=== PATIENT | female | born 1965 | race Caucasian/White ===

== ENCOUNTER 2019-03-25 17:14 | Inpatient (IN) | payer BC, OTHER ==
[2019-03-25] MEDS ORDERED: SODIUM CHLORIDE 1,000 ML IV STA (17:21)
[2019-03-25] MEDS ORDERED: ONDANSETRON 4 MG/2 ML VIAL IVPUSH ONE (17:23)
--- NOTE | 2019-03-25 17:24 | PDOC ---
Rapid Medical Evaluation Chief Complaint: Pain Time Seen by Provider: 03/25/19 17:20 Medical Evaluation: Allergies Allergy/AdvReac Type Severity Reaction Status Date / Time No Known Allergies Allergy Verified 03/25/19 17:20 03/25/19 17:24 I have performed a brief in-person evaluation of this patient. The patient presents with a chief complaint of: right upper abd pain Pertinent physical exam findings:stable and in NAD, non-focal I have ordered the following:labs, zofran The patient will proceed to the ED for further evaluation.
[2019-03-25] MEDS ORDERED: morphine CARPU-JECT 4 MG/1 ML DISP.SYRIN IVPUSH ONE (17:48)
--- NOTE | 2019-03-25 17:48 | PDOC ---
History of Present Illness - General Chief Complaint: Pain Stated Complaint: ABD PAIN Time Seen by Provider: 03/25/19 17:20 - History of Present Illness Initial Comments: 03/25/19 18:44 The patient is a 53 year old female with a history of Gallstone, Gastric Bypass who presents for evaluation of RUQ abdominal pain. The patient reports acute onset of RUQ abdominal pain earlier today that initially began as a dull ache and has progressed to 8/10 crampy pain with radiation to her back prompting her presentation to the ED for further evaluation. She notes that she has had similar pain intermittently over the past several years and has known gallstones. She otherwise denies fevers, chills, SOB, chest pain, vomiting, or changes with urination or bowel movements. Past History - Past Medical History Allergies/Adverse Reactions: Allergies Allergy/AdvReac Type Severity Reaction Status Date / Time fexofenadine [From Susie] Allergy Verified 03/25/19 17:48 Home Medications: Ambulatory Orders Albuterol Sulfate Inhaler - [Ventolin Hfa Inhaler -] 1 - 2 inh PO Q4H PRN Cholecalciferol (Vitamin D3) [Vitamin D3 -] 1,000 unit PO DAILY 03/25/19 COPD: No CHF: No DVT: No Diabetes: No Other medical history: GALLSTONES - Immunization History Immunization Up to Date: Yes - Suicide/Smoking/Psychosocial Hx Smoking History: Never smoked Have you smoked in the past 12 months: No Information on smoking cessation initiated: No Hx Alcohol Use: No Drug/Substance Use Hx: No Review of Systems - Review of Systems Comments:: 03/25/19 19:24 Constitutional: No fevers, chills, fatigue, malaise HEENT: No Rhinorrhea, nasal congestion, visual changes Cardiovascular: No chest pain, syncope, palpitations, lightheadedness Respiratory: No Cough, SOB, Hemoptysis, Gastrointestinal: Abdominal pain, nausea. No Vomiting, Constipation, Diarrhea, Melena Genitourinary: No Dysuria, Frequency, Urgency, Hesitancy, Hematuria, Flank pain Musculoskeletal: No Myalgia, arthralgia Skin: No rashes, itching, bruising, pallor Neurologic: No Headache, Dizziness, Numbness, Weakness, or Tingling Psychiatric: No Hallucinations. No SI or HI *Physical Exam - Vital Signs Last Vital Signs Temp Pulse Resp BP Pulse Ox 97.9 F 83 16 225/120 H 100 03/25/19 17:21 03/25/19 17:21 03/25/19 17:21 03/25/19 17:21 03/25/19 17:21 - Physical Exam Comments: 03/25/19 19:24 General Appearance: Nourished. No Apparent Distress HEENT: No Pharyngeal Erythema, Tonsillar Exudate, Tonsillar Erythema Neck: No Cervical Lymphadenopathy Respiratory/Chest: Lungs Clear, Normal Breath Sounds. No Crackles, Rales, Rhonchi, Wheezing Cardiovascular: Regular Rhythm, Regular Rate. No Murmur, Gallops, Rubs Gastrointestinal/Abdominal: Normal Bowel Sounds, Soft. RUQ Tenderness to palpation with Ennis's sign. No Guarding, Rebound, Musculoskeletal: No CVA Tenderness Extremity: Normal Capillary Refill Integumentary: Normal Color, Dry, Warm Neurologic: Fully Oriented, Alert, Normal Mood/Affect, Normal Response, ED Treatment Course - LABORATORY CBC & Chemistry Diagram: 03/26/19 05:25 03/26/19 05:25 Medical Decision Making - Medical Decision Making 03/25/19 19:25 The patient is a 53 year old female with a history of Gallstone, Gastric Bypass who presents for evaluation of RUQ abdominal pain. Given the patient's history and physical exam, we will obtain a cbc, cmp, lipase, ua, ekg, gallbladder US to evaluate further. We will treat with zofran, morphine, iv fluids and continue to monitor and reassess while here in the ED. 03/25/19 21:15 cbc, cmp, lipase are unremarkable. Gallbladder US demonstrates findings concerning for a possible acute cholecysitis as read by our radiologist. We discussed the case with Dr. Jc with surgery who is aware and will evaluate the patient. The patient will require admission for further monitoring and management. We discussed the case with the admitting team who accepted the patient for admission. *DC/Admit/Observation/Transfer Diagnosis at time of Disposition: Abdominal pain Qualifiers: Abdominal location: unspecified location Qualified Code(s): R10.9 - Unspecified abdominal pain Cholecystitis with cholelithiasis Qualifiers: Cholelithiasis location: gallbladder and bile duct Cholecystitis acuity: unspecified acuity Biliary obstruction: without biliary obstruction Qualified Code(s): K80.60 - Calculus of gallbladder and bile duct with cholecystitis, unspecified, without obstruction - Referrals - Patient Instructions - Post Discharge Activity
[2019-03-25] MEDS ORDERED: ONDANSETRON 4 MG/2 ML VIAL ONE (17:49)
[2019-03-25] MEDS ORDERED: morphine SULFATE 4 MG/ML VIAL ONE (17:55)
--- NOTE | 2019-03-25 18:50 | PDOC ---
Documentation entered by Meg Alexandre SCRIBE, acting as scribe for Edie Haynes MD. Edie Haynes MD: This documentation has been prepared by the deannibe, Meg Alexandre SCRIBE, under my direction and personally reviewed by me in its entirety. I confirm that the documentation accurately reflects all work, treatment, procedures, and medical decision making performed by me. Attending Attestation - Resident Resident Name: Jay Smith - ED Attending Attestation I have performed the following: I have examined & evaluated the patient, The case was reviewed & discussed with the resident, I agree w/resident's findings & plan, Exceptions are as noted - HPI HPI: 03/25/19 18:44 The patient is a 53-year-old female with a past medical history significant for gastric bypass, biliary stone, HTN, HLD presents to the emergency department with an acute onset of right upper quadrant pain since this afternoon after eating a hamburger. The patient reports the pain initially was dull in quality, which progressed into crampy, 8/10 pain, radiating to the back. The patient reports associated symptoms of nausea and abdominal bloating. Denies vomiting, fever, chills, chest pain, sob, or changes in bowel movement. Denies passing gas since symptom presentation. Allergies: fexofenadine PCP: Dr. Messina. - Physicial Exam PE: 03/25/19 18:38 GENERAL: The patient is in no acute distress. ENT: Ears normal, nares patent, oropharynx clear without exudates. Moist mucous membranes. NECK: Normal range of motion, supple LUNGS: Breath sounds equal, clear to auscultation bilaterally. No wheezes, and no crackles. HEART:Regular rate and rhythm, normal S1 and S2 without murmur, rub or gallop. ABDOMEN: Soft, distended, RUQ tenderness to palpation, no involuntary guarding or rebound EXTREMITIES: Normal range of motion, no edema. NEUROLOGICAL: Cranial nerves II through XII grossly intact. Normal speech. No focal neurological deficits. SKIN: Warm, Dry, normal turgor, no rashes or lesions noted. - Medical Decision Making 03/25/19 18:38 53 yo F h/o gastric bypass, known biliary colic presents to the ER with a complaint of RUQ pain Pt reports that her symptoms began while at work, after lunch (had a well done burger, potatoe roll, hot sauce, no cheese or rosales) She noted cramping/sharp pain She left work and went home and was planning to just lay down Pt daughter encouraged her to come to the ER No fevers or chills (+) nausea, (+) burping, no vomiting No diarrhea Has not passed gas DD: Biliary colic, cholecystitis, SBO Will do: Labs US Consider CT Analgesia Anti emetics IVF 03/25/19 18:50 EKG - NSR rate of 72 bpm, axis nml, intervals nml, no st elevation or depressions, t waves upright Pt US pending Consider CT Pt signed out to Dr Betts
[2019-03-25 18:55] LABS: EOS % 0.5 % (0-4.5); HEMOGLOBIN 12.1 GM/dL (10.7-15.3); LYMPH % 15.3 % (8-40); MCH 24.7 pg (25.7-33.7); MEAN CELL VOLUME 77.3 fl (80-96); MEAN PLT VOLUME 7.4 fl (7.5-11.1); MONO % 5.7 % (3.8-10.2); NEUT % 77.5 % (42.8-82.8); PLATELET COUNT 269 K/MM3 (134-434); RBC 4.91 M/mm3 (3.60-5.2); RDW 15.9 % (11.6-15.6)
[2019-03-25 19:17] LABS: ALBUMIN 3.8 g/dl (3.4-5.0); BILIRUBIN,TOTAL 0.6 mg/dL (0.2-1); CALCIUM 8.6 mg/dL (8.5-10.1); POTASSIUM 3.9 mmol/L (3.5-5.1); TOT PROT 7.1 g/dl (6.4-8.2)
[2019-03-25] MEDS ORDERED: PIPERACILLIN/TAZOB 4.5 GM 4.5 GM in DEXTROSE 5%-WATER 100 ML IVPB ONE (19:49)
[2019-03-25] MEDS ORDERED: SODIUM CHLORIDE 1,000 ML IV SCH (20:00)
[2019-03-25 21:03] LABS: INR 0.97 (0.83-1.09); PROTHROMBIN TIME (PATIENT) 11.5 SEC (9.7-13.0)
[2019-03-25 21:03] LABS: EPI CELLS 3.6 /HPF (0-5/HPF); HYALINE CASTS 1 /lpf (0-8); URINE APPEARANCE CLEAR; URINE BACTERIA 188.3 /hpf (NEGATIVE); URINE BILIRUBIN NEGATIVE (NEGATIVE); URINE COLOR YELLOW; URINE GLUCOSE (UA) NEGATIVE (NEGATIVE); URINE KETONE NEGATIVE (NEGATIVE); URINE LEUK ESTERASE 1+ (NEGATIVE); URINE NITRITE NEGATIVE (NEGATIVE); URINE PROTEIN TRACE (NEGATIVE); URINE RBC 3 /hpf (0-4); URINE UROBILINOGEN 0.2 mg/dL (0.2-1.0); URINE WBC 6 /hpf (0-5)
[2019-03-25 21:06] LABS: ACTIVATED PTT 31.9 SECONDS (25.2-36.5)
--- NOTE | 2019-03-25 21:25 | HP ---
Admitting History and Physical - Primary Care Physician PCP: Sherif Messina - Admission Chief Complaint: 53 year old female complain of acute onset right upper quadrant pain History of Present Illness: 53-year-old female with PMhx of gastric bypass sx ( 21 years ago), biliary stone , HTN, HLD, hypothyroidism, Anemia,Asthma presents to the ER with an acute onset of right upper quadrant pain since this afternoon after eating (ate hamburger).As per patient pain initially was dull and progressed into crampy, 8/ 10 pain, radiating to the back. The patient reports associated symptoms of nausea and abdominal bloating. As per patient tried OTC Mylanta and herbal tea without relief. Patient denies vomiting, chills, chest pain, sob, or changes in bowel movement (last BM this morning normal consistency). 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) ) History of Substance Use: reports: None Home Medications - Allergies Allergies/Adverse Reactions: Allergies Allergy/AdvReac Type Severity Reaction Status Date / Time fexofenadine [From Susie] Allergy Verified 03/25/19 17:48 - Home Medications Home Medications: Ambulatory Orders Albuterol Sulfate Inhaler - [Ventolin Hfa Inhaler -] 1 - 2 inh PO Q4H PRN Cholecalciferol (Vitamin D3) [Vitamin D3 -] 1,000 unit PO DAILY 03/25/19 Family Disease History - Family Disease History Family Disease History: Heart Disease: Father (51 year from heart attack ) , Respiratory: Mother (severe asthama/ respiratory distress ) Review of Systems - Review of Systems Constitutional: reports: No Symptoms Eyes: reports: No Symptoms HENT: reports: No Symptoms Neck: reports: No Symptoms Cardiovascular: reports: No Symptoms Respiratory: reports: No Symptoms Gastrointestinal: reports: Bloating, Nausea Genitourinary: reports: No Symptoms Physical Examination Vital Signs: Vital Signs Temperature 97.9 F 03/25/19 17:21 Pulse Rate 83 06/28/19 17:21 Respiratory Rate 16 03/25/19 17:21 Blood Pressure 225/120 H 03/25/19 17:21 O2 Sat by Pulse Oximetry (%) 100 03/25/19 17:21 Constitutional: Yes: Well Nourished Eyes: Yes: WNL HENT: Yes: WNL Neck: Yes: WNL Cardiovascular: Yes: WNL Respiratory: Yes: WNL Gastrointestinal: Yes: Normal Bowel Sounds, Soft, Abdomen, Obese, Tenderness ( right upper quarant tender on palpation) ...Rectal Exam: Yes: WNL Renal/: Yes: WNL Breast(s): Yes: WNL Musculoskeletal: Yes: WNL Extremities: Yes: WNL Edema: No (no edema noted ) Peripheral Pulses WNL: Yes (normal ) Integumentary: Yes: WNL Neurological: Yes: WNL, Alert, Oriented ...Motor Strength: WNL Psychiatric: Yes: WNL Labs: CBC, BMP 03/25/19 18:25 03/25/19 18:25 Problem List - Problems (1) Cholecystitis with cholelithiasis Assessment/Plan: US ABD:Cholelithiasis/ acute cholecysititis, common duct slight dilation measuring 0.7 cm -Continue with IV fluids - Consider MRCP - Analgesia - Anti emetics - Surgery consult Code(s): K80.10 - CALCULUS OF GALLBLADDER W CHRONIC CHOLECYST W/O OBSTRUCTION (2) HTN (hypertension) Assessment/Plan: Monitor blood pressure closely - if BP remains elevated start TESFAYE inhibitor Code(s): I10 - ESSENTIAL (PRIMARY) HYPERTENSION Assessment/Plan Acute cholecystitis Continue with IVF, Analgesia Anti emetics as needed Surgery consult - consider MRCP HTN - montior BP closely - if BP remain elevated consider starting TESFAYE inhibitor Visit type - Emergency Visit Emergency Visit: Yes Care time: The patient presented to the Emergency Department on the above date and was hospitalized for further evaluation of their emergent condition. - New Patient This patient is new to me today: Yes Date on this admission: 03/25/19 - Critical Care Critical Care patient: No
[2019-03-25] MEDS ORDERED: ONDANSETRON 4 MG/2 ML VIAL IM PRN (22:34)
--- NOTE | 2019-03-26 00:27 | PDOC ---
*Physical Exam - Vital Signs Last Vital Signs Temp Pulse Resp BP Pulse Ox 97.9 F 83 16 225/120 H 100 03/25/19 17:21 03/25/19 17:21 03/25/19 17:21 03/25/19 17:21 03/25/19 17:21 ED Treatment Course - LABORATORY CBC & Chemistry Diagram: 03/25/19 18:25 03/25/19 18:25 - ADDITIONAL ORDERS Additional order review: Laboratory Results 03/25/19 03/25/19 03/25/19 20:40 20:30 18:25 PT with INR 11.50 INR 0.97 PTT (Actin FS) 31.9 Sodium 140 Potassium 3.9 Chloride 107 Carbon Dioxide 27 Anion Gap 5 L BUN 14.0 Creatinine 1.0 Est GFR (CKD-EPI)AfAm 74.49 Est GFR (CKD-EPI)NonAf 64.27 Random Glucose 119 H Calcium 8.6 Total Bilirubin 0.6 AST 12 L ALT 20 Alkaline Phosphatase 81 Total Protein 7.1 Albumin 3.8 Lipase 83 Urine Color Yellow Urine Appearance Clear Urine pH 5.0 Ur Specific [place] 1.019 Urine Protein Trace Urine Glucose (UA) Negative Urine Ketones Negative Urine Blood Negative Urine Nitrite Negative Urine Bilirubin Negative Urine Urobilinogen 0.2 Ur Leukocyte Esterase 1+ H Urine WBC (Auto) 6 Urine RBC (Auto) 3 Urine Casts (Auto) 1 U Epithel Cells (Auto) 3.6 Urine Bacteria (Auto) 188.3 03/25/19 18:25 RBC 4.91 MCV 77.3 L MCHC 32.0 RDW 15.9 H MPV 7.4 L Neutrophils % 77.5 Lymphocytes % 15.3 Monocytes % 5.7 Eosinophils % 0.5 Basophils % 1.0 - Medications Given in the ED: ED Medications Discontinued Medications Generic Name Dose Route Start Last Admin Trade Name Freq PRN Reason Stop Dose Admin Sodium Chloride 1,000 mls @ 1,000 mls/hr 03/25/19 17:21 03/25/19 17:49 Normal Saline - IV 03/25/19 18:20 1,000 mls/hr ASDIR STA Administration Piperacillin Sod/Tazobactam 100 mls @ 200 mls/hr 03/25/19 19:49 03/25/19 20: 27 Sod 4.5 gm/ Dextrose IVPB 06/28/19 20:18 Not Given ONCE ONE Protocol Morphine Sulfate 4 mg 03/25/19 17:48 03/25/19 17:53 Morphine Injection - IVPUSH 03/25/19 17:49 4 mg ONCE ONE Administration Ondansetron HCl 4 mg 03/25/19 17:23 03/25/19 17:52 Zofran Injection IVPUSH 03/25/19 17:24 4 mg ONCE ONE Administration Medical Decision Making - Medical Decision Making 03/26/19 00:26 Pt was signed out to me; RUQ pain; now with cholecystitis suspicion on sono; she will be admitted and surg will eval in the AM. *DC/Admit/Observation/Transfer Diagnosis at time of Disposition: Abdominal pain Qualifiers: Abdominal location: unspecified location Qualified Code(s): R10.9 - Unspecified abdominal pain Cholecystitis with cholelithiasis Qualifiers: Cholelithiasis location: gallbladder and bile duct Cholecystitis acuity: unspecified acuity Biliary obstruction: without biliary obstruction Qualified Code(s): K80.60 - Calculus of gallbladder and bile duct with cholecystitis, unspecified, without obstruction - Referrals - Patient Instructions - Post Discharge Activity
[2019-03-26] MEDS ORDERED: hydrALAZINE HCL 20 MG/ML VIAL IVPUSH ONE (01:29)
--- NOTE | 2019-03-26 01:48 | HOSP ---
Subjective - Review of Symptoms Events since last encounter: Patient noted with BP of 225/120 in the ED, rechecked 193/113 with complain of headache, as per patient has history of HTN but does not take medication, BP was rechecked on floor now 140/96 with headache still present. EKG was done in ED which was NS. Will get CT head as per hospitalist attending. Nursing instructed to check vitals q 4 hours if noted with BP greater than 170/90 notify MD/SEED CLEANING MANAGER immediately General: No: Chills, Night Sweats, Fatigue, Malaise, Appetite, Other HEENT: Yes: Head Aches Pulmonary: No: Dyspnea, Cough, Pleuritic Chest Pain, Other Cardiovascular: No: Chest Pain, Palpitations, Orthopnea, Paroxysmal Noc. Dyspnea , Edema, Light Headedness, Other Gastrointestinal: No: Nausea, NOSYM, Vomiting, Abdominal Pain, Diarrhea, Constipation, Melena, Hematochezia, Other Genitourinary: No: Dysuria, NOSYM, Frequency, Incontinence, Hematuria, Retention , Other Musculoskeletal: No: No Symptoms, Back Pain, Crepitus, Decreased ROM, Extremity Pain, Joint Pain, Joint Swelling, Muscle Pain, Muscle Cramps, Muscle Weakness, Other Neurological: No: Weakness, Numbness, Incoordination, Change in speech, Confusion, Seizures, Other Physical Examination Vital Signs: Vital Signs Temperature 97.9 F 03/25/19 17:21 Pulse Rate 80 03/26/19 00:47 Respiratory Rate 16 03/26/19 00:47 Blood Pressure 192/114 H 03/26/19 00:47 O2 Sat by Pulse Oximetry (%) 100 03/26/19 00:47 Findings/Remarks: Repeat BP 140/96 Constitutional: Yes: Well Nourished, No Distress Eyes: Yes: WNL HENT: Yes: WNL Neck: Yes: WNL Cardiovascular: Yes: Regular Rate and Rhythm Respiratory: Yes: WNL Gastrointestinal: Yes: WNL Labs: CBC, BMP 03/25/19 18:25 03/25/19 18:25 Hospitalist Encounter Assessment: HTN ( initially BP in ED was 225/120 then rechecked 192/114) - rechecked on floor 140/90 still with headache - monitor vitals q4 hours - CT head - start hydralazine 25 mg TID Outcome: HTN ( initially BP in ED was 225/120 then rechecked 192/114) - rechecked on floor 140/90 still with headache - monitor vitals q4 hours Recommendations/Interventions: HTN - monitor vitals q4 hours - CT head - start hydralazine 25 mg TID
[2019-03-26 02:25] VITALS: BMI 38.0
[2019-03-26] MEDS: ACETAMINOPHEN 325 MG TABLET (FP) PO PRN ×2 (02:41→20:21)
[2019-03-26] MEDS: SODIUM CHLORIDE 0.45% 1,000 ML IV SCH (04:08)
[2019-03-26] MEDS: hydrALAZINE HCL 25 MG TABLET (FP) PO SCH ×3 (06:01→21:21)
[2019-03-26 07:27] LABS: HEMATOCRIT 34.7 % (32.4-45.2); HEMOGLOBIN 11.2 GM/dL (10.7-15.3); MCH 24.9 pg (25.7-33.7); MCHC 32.2 g/dl (32.0-36.0); MEAN CELL VOLUME 77.3 fl (80-96); MEAN PLT VOLUME 7.7 fl (7.5-11.1); PLATELET COUNT 225 K/MM3 (134-434); RBC 4.49 M/mm3 (3.60-5.2); RDW 15.7 % (11.6-15.6); WHITE BLOOD COUNT 5.7 K/mm3 (4.0-10.0)
[2019-03-26 07:40] LABS: ALBUMIN 3.3 g/dl (3.4-5.0); BILIRUBIN,TOTAL 0.7 mg/dL (0.2-1); BLOOD UREA NITROGEN 9.3 mg/dL (7-18); CALCIUM 8.5 mg/dL (8.5-10.1); CREATININE 0.8 mg/dL (0.55-1.3); POTASSIUM 4.3 mmol/L (3.5-5.1); TOT PROT 6.2 g/dl (6.4-8.2)
--- NOTE | 2019-03-26 13:09 | PN ---
Progress Note, Physician - Current Medication List Current Medications: Active Medications Acetaminophen (Tylenol -) 650 mg PO Q6H PRN PRN Reason: HEADACHE Last Admin: 03/26/19 02:41 Dose: 650 mg Amlodipine Besylate (Norvasc -) 5 mg PO DAILY [facility] Hydralazine HCl (Apresoline -) 25 mg PO TID [facility] Last Admin: 03/26/19 06:01 Dose: 25 mg Sodium Chloride (1/2 Normal Saline) 1,000 mls @ 75 mls/hr IV ASDIR [facility] Last Admin: 03/26/19 04:08 Dose: 75 mls/hr Ondansetron HCl (Zofran Injection) 4 mg IM Q6H PRN PRN Reason: NAUSEA AND/OR VOMITING - Objective Vital Signs: Vital Signs Temperature 97.8 F 03/26/19 10:00 Pulse Rate 67 03/26/19 10:00 Respiratory Rate 20 03/26/19 10:00 Blood Pressure 158/99 03/26/19 10:00 O2 Sat by Pulse Oximetry (%) 99 03/26/19 09:00 Cardiovascular: Yes: Regular Rate and Rhythm Respiratory: Yes: Regular, CTA Bilaterally Gastrointestinal: Yes: Normal Bowel Sounds, Soft, Tenderness (ruq) Labs: CBC, BMP 03/26/19 05:25 03/26/19 05:25 INR, PTT INR 0.97 (0.83-1.09) 03/25/19 20:30 Assessment/Plan (1) Cholecystitis with cholelithiasis Assessment/Plan: US ABD:Cholelithiasis/ acute cholecysititis, common duct slight dilation measuring 0.7 cm -Continue with IV fluids - MRCP - Analgesia - Anti emetics - Surgery and GI consults consult Code(s): K80.10 - CALCULUS OF GALLBLADDER W CHRONIC CHOLECYST W/O OBSTRUCTION (2) HTN (hypertension) Assessment/Plan: -Monitor blood pressure closely -continue with hydralazine -add amlodipine -Cardio
--- NOTE | 2019-03-26 13:48 | CONSULT ---
Consult Consult Specialty:: General Surgery Referred by:: La Nena Smith Reason for Consultation:: gallstones, RUQ pain - History of Present Illness Chief Complaint: RUQ pain, nausea History of Present Illness: 53yo obese F with asthma, h/o morbid obesity s/p lap gastric bypass with 150# weight loss, s/p abdominoplasty with hernia repair and bilateral skin reduction of upper arms, regained about 30#, known cholelithiasis, h/o HTN and hypothyroidism not on meds for years for either (PMD Dr. Messina), admitted through ER to medicine with RUQ pain beginning after lunch yesterday, associated with nausea but no vomiting, sweating with the pain, and 1-2 weeks of loose stools prior. She also had bad headache over last weekend, unusual for her; denies F/C, recent illness. Pain radiated around toward back. In ER, she had normal labs including LFTs, lipase and wbc. US showed gallstones, at least one 2.7cm, and mildly dilated cbd 7mm. Her BP was 200/120 in ER, repeated last night still quite elevated, and with her headache, she had head CT which was negative for acute findings. BP is closer to 140s-150s/90s after hydralazine started, and she states her baseline is about 140/90. Surgery was asked to assess. She is seen and examined in her room with daughter present, ambulated back from [facility]. Her pain is down from 8-9 to 2/10. She has a headache this morning, but also admits to a large coffee most mornings. Diet in last few days has been higher in fat than usual - hamburger for lunch yesterday with hot sauce, cottage cheese yesterday morning and a Dann' coffee with cream in it (usually skim or no milk). She has not seen her bariatric surgeon for years. - History Source History Provided By: Patient Limitations to Obtaining History: No Limitations - Past Medical History Cardio/Vascular: Yes: HTN (not on meds for years (resolved after gastric bypass) ) Pulmonary: Yes: Asthma Gastrointestinal: Yes: Other (morbid obesity s/p lap gastric bypass 2001) Hepatobiliary: Yes: Cholelithiasis ...: No Endocrine: Yes: Hypothyroidism (not on meds since 2014), Other (gestational DM only) - Past Surgical History Past Surgical History: Yes: Bariatric Surgery (lap gastric bypass 2001), Hernia Repair (ventral with abdominoplasty 2002), Tonsillectomy Additional Surgical History: abdominoplasty and redundant skin excision from upper arms - Alcohol/Substance Use Hx Alcohol Use: No (quit heavy wine use 1 yr ago) History of Substance Use: reports: None - Smoking History Smoking history: Never smoked Have you smoked in the past 12 months: No - Social History ADL: Independent Home Medications - Allergies Allergies/Adverse Reactions: Allergies Allergy/AdvReac Type Severity Reaction Status Date / Time fexofenadine [From Susie] Allergy Verified 03/25/19 17:48 - Home Medications Home Medications: Ambulatory Orders Albuterol Sulfate Inhaler - [Ventolin Hfa Inhaler -] 1 - 2 inh PO Q4H PRN Cholecalciferol (Vitamin D3) [Vitamin D3 -] 1,000 unit PO DAILY 03/25/19 Home Medications (free text): last used albuterol 6-7 weeks ago Family Disease History - Family Disease History Family Disease History: Heart Disease: Father (51 year from heart attack ) , Respiratory: Mother (severe asthama/ respiratory distress ) Review of Systems - Review of Systems Constitutional: reports: Diaphoresis (with pain). denies: Chills, Fever Eyes: denies: Blurred Vision, Recent Change in Vision HENT: denies: Difficult Swallowing, Throat Pain Neck: denies: Swollen Glands, Tenderness Cardiovascular: denies: Chest Pain, Palpitations Respiratory: denies: Cough, SOB Gastrointestinal: reports: Abdominal Pain (with hpi), Bloating, Diarrhea (with hpi), Nausea. denies: Vomiting Genitourinary: denies: Burning, Dysuria Musculoskeletal: denies: Back Pain, Joint Pain, Muscle Pain Integumentary: denies: Change in Color, Rash Neurological: reports: Headache (recently, but no sig history of). denies: Dizziness Psychiatric: denies: Anxiety, Depression Physical Exam Vital Signs: Vital Signs Temperature 97.8 F 03/26/19 10:00 Pulse Rate 67 03/26/19 10:00 Respiratory Rate 20 03/26/19 10:00 Blood Pressure 158/99 03/26/19 10:00 O2 Sat by Pulse Oximetry (%) 99 03/26/19 09:00 Constitutional: Yes: No Distress, Calm, Obese Eyes: Yes: Conjunctiva Clear, EOM Intact. No: Sclera Icterus HENT: Yes: Atraumatic, Normocephalic Neck: Yes: Supple, Trachea Midline Cardiovascular: Yes: Regular Rate and Rhythm Respiratory: Yes: Regular, CTA Bilaterally. No: Wheezes Gastrointestinal: Yes: Normal Bowel Sounds, Soft, Abdomen, Obese, Tenderness ( mild RUQ, no stefan/guard). No: Tenderness, Epigastrium ...Rectal Exam: Yes: Deferred Renal/: No: CVA Tenderness - Left, CVA Tenderness - Right Musculoskeletal: No: Back Pain (no direct tenderness), Joint Stiffness, Joint Swelling Extremities: No: Cool, Cyanosis Edema: No Peripheral Pulses WNL: Yes Integumentary: No: Jaundice, Rash Neurological: Yes: Alert, Oriented. No: Unsteady Gait Psychiatric: Yes: Alert, Oriented Labs: CBC, BMP 03/26/19 05:25 03/26/19 05:25 CMP Sodium 142 mmol/L (136-145) 03/26/19 05:25 Potassium 4.3 mmol/L (3.5-5.1) 03/26/19 05:25 Chloride 109 mmol/L (98-107) H 03/26/19 05:25 Carbon Dioxide 29 mmol/L (21-32) 03/26/19 05:25 Anion Gap 4 MMOL/L (8-16) L 03/26/19 05:25 BUN 9.3 mg/dL (7-18) 03/26/19 05:25 Creatinine 0.8 mg/dL (0.55-1.3) 03/26/19 05:25 Est GFR (CKD-EPI)AfAm 97.55 03/26/19 05:25 Est GFR (CKD-EPI)NonAf 84.17 03/26/19 05:25 Random Glucose 85 mg/dL (74-106) 03/26/19 05:25 Calcium 8.5 mg/dL (8.5-10.1) 03/26/19 05:25 Total Bilirubin 0.7 mg/dL (0.2-1) 03/26/19 05:25 AST 9 U/L (15-37) L 03/26/19 05:25 ALT 15 U/L (13-61) 03/26/19 05:25 Alkaline Phosphatase 70 U/L (45-117) 03/26/19 05:25 Total Protein 6.2 g/dl (6.4-8.2) L 03/26/19 05:25 Albumin 3.3 g/dl (3.4-5.0) L 03/26/19 05:25 Lipase 83 U/L (73-393) 03/25/19 18:25 INR, PTT INR 0.97 (0.83-1.09) 03/25/19 20:30 Urine Test Results Urine Color Yellow 03/25/19 20:40 Urine Appearance Clear 03/25/19 20:40 Urine pH 5.0 (5.0-8.0) 03/25/19 20:40 Ur Specific [place] 1.019 (1.010-1.035) 03/25/19 20:40 Urine Protein Trace (NEGATIVE) 03/25/19 20:40 Urine Glucose (UA) Negative (NEGATIVE) 03/25/19 20:40 Urine Ketones Negative (NEGATIVE) 03/25/19 20:40 Urine Blood Negative (NEGATIVE) 03/25/19 20:40 Urine Nitrite Negative (NEGATIVE) 03/25/19 20:40 Urine Bilirubin Negative (NEGATIVE) 03/25/19 20:40 Ur Leukocyte Esterase 1+ (NEGATIVE) H 03/25/19 20:40 LFTs, lipase, wbc normal Imaging - Results Cat Scan: Report Reviewed (head CT with no acute findings) Ultrasound: Report Reviewed, Image Reviewed (images reviewed - multiple gallstones, several large, no sig wall thickening or fluid, mildly dilated cbd at 7mm) MRI: Pending Problem List - Problems (1) Calculus of gallbladder without cholecystitis without obstruction Assessment/Plan: admitted to medicine NPO/IVF likely biliary colic with large stones MRCP pending to r/o cbd stone given dilation pain improved and tenderness mild needs medical optimization prior to considering cholecystectomy, whether this admission or not will discuss with medical team after MRI would use nonnarcotics first line for pain prn GI/DVT prophylaxis also seen with Dr. Eaton/GI discussed with him Code(s): K80.20 - CALCULUS OF GALLBLADDER W/O CHOLECYSTITIS W/O OBSTRUCTION (2) RUQ pain Assessment/Plan: improved Code(s): R10.11 - RIGHT UPPER QUADRANT PAIN (3) Nausea alone Code(s): R11.0 - NAUSEA (4) Status post gastric bypass for obesity Assessment/Plan: lap gastric bypass with almost 150lb weight loss Code(s): Z98.84 - BARIATRIC SURGERY STATUS (5) Weight gain status post gastric bypass Assessment/Plan: about 30 pounds back up from low of 220s Code(s): R63.5 - ABNORMAL WEIGHT GAIN (6) Other obesity due to excess calories Code(s): E66.09 - OTHER OBESITY DUE TO EXCESS CALORIES (7) HTN (hypertension) Assessment/Plan: significantly elevated BP on admission, improved with hydralazine not on meds for a number of years per patient will need to be controlled before any surgical procedure Code(s): I10 - ESSENTIAL (PRIMARY) HYPERTENSION Qualifiers: Hypertension type: essential hypertension Qualified Code(s): I10 - Essential (primary) hypertension
--- NOTE | 2019-03-26 14:06 | CON.GI ---
Consult Consult Specialty:: GI Referred by:: Dr. Messina Reason for Consultation:: Abdominal Pain - History of Present Illness Chief Complaint: RUQ pain after lunch yesterday History of Present Illness: 53F admitted through [facility] ER yesterday for evaluation of abdominal pain. She states being in her USOH up until after eating lunch yesterday. Lunch consisted of a hamburger and she had a Latte. About 15-30 mins afterwards, she developed progressively intense RUQ pain. As the pain increased it began to radiate to her right upper back as well. There was associated nausea without vomiting. In the ER she states that it was painful when thery were examining her RUQ and that it was an 8/10 pain. She was given morphine that seemeed to alleviate the pain, has not received analgesia today and pain level is currently 2/10. She denies similar episodes in the past. She has never had an upper endoscopy or colonoscopy. There is no family history of colorectal cancer or other GI malignancy. BP markedly elevated on admission. US in ED revealed gallstones, CBD of 7mm and borderline thickened GB wall. - History Source History Provided By: Patient, Family Member (daughter present at bedside) - Past Medical History Cardio/Vascular: Yes: HTN (not on meds for years (resolved after gastric bypass) ) Pulmonary: Yes: Asthma Gastrointestinal: Yes: Other (morbid obesity s/p lap gastric bypass 2001) Hepatobiliary: Yes: Cholelithiasis ...: No Endocrine: Yes: Hypothyroidism (not on meds since 2014), Other (gestational DM only, Obesity) - Past Surgical History Past Surgical History: Yes: Bariatric Surgery (lap gastric bypass 2001), Hernia Repair (ventral with abdominoplasty 2002), Tonsillectomy Additional Surgical History: abdominoplasty and redundant skin excision from upper arms - Alcohol/Substance Use Hx Alcohol Use: Yes (heavy wine consumption, quit 1 yr ago) History of Substance Use: reports: None - Smoking History Smoking history: Never smoked Have you smoked in the past 12 months: No - Social History Usual Living Arrangement: With Spouse ADL: Independent Place of : [facility] History of Recent Travel: No Home Medications - Allergies Allergies/Adverse Reactions: Allergies Allergy/AdvReac Type Severity Reaction Status Date / Time fexofenadine [From Susie] Allergy Verified 03/25/19 17:48 - Home Medications Home Medications: Ambulatory Orders Albuterol Sulfate Inhaler - [Ventolin Hfa Inhaler -] 1 - 2 inh PO Q4H PRN Cholecalciferol (Vitamin D3) [Vitamin D3 -] 1,000 unit PO DAILY 03/25/19 Family Disease History - Family Disease History Family Disease History: Heart Disease: Father (51 year from heart attack ) , Respiratory: Mother ( 59: asthama/ respiratory distress ), Other: Brother (2, 1 from asthma complications, had DM II), Sister (2, 1 from Hodgkin 's Lymphoma in 20's), Son (4 healthy), Daughter (1 healthy) Other Family History: No family history of colorectal cancer or other GI malignancy Review of Systems - Review of Systems Constitutional: denies: Fever Cardiovascular: denies: Chest Pain Respiratory: denies: Cough, SOB Gastrointestinal: reports: Abdominal Pain, Constipation (currently), Diarrhea ( intermittent), Nausea. denies: Melena, Rectal Bleeding, Vomiting Musculoskeletal: reports: Other Physical Exam-GI Vital Signs: Vital Signs Temperature 97.8 F 03/26/19 10:00 Pulse Rate 67 03/26/19 10:00 Respiratory Rate 20 03/26/19 10:00 Blood Pressure 158/99 03/26/19 10:00 O2 Sat by Pulse Oximetry (%) 99 03/26/19 09:00 Constitutional: Yes: Calm Eyes: No: Sclera Icterus Cardiovascular: Yes: Regular Rate and Rhythm. No: Murmur Respiratory: Yes: CTA Bilaterally Gastrointestinal Inspection: Yes: Scars (periumbilical scar, + abdominoplasty scar). No: Distention ...Auscultate: Yes: Normoactive Bowel Sounds ...Palpate: Yes: Soft. No: Tenderness ...Percussion: No: Tympanitic Edema: No (No LE edema) Labs: CBC, BMP 03/26/19 05:25 03/26/19 05:25 INR, PTT INR 0.97 (0.83-1.09) 03/25/19 20:30 Problem List - Problems (1) Biliary colic Assessment/Plan: Suspect biliary colic. Pain improved without leukocytosis, fevers making acute cholecystitis less likely. While CBD mildly prominent, liver chemistries not suggestive of biliary obstruction. Surgery evaluating Agree with MRCP to further evaluate gallbladder and biliary tract. If there is suggestion of choledocholithiasis, this would need to be addressed at a teritary care facility given her altered gastric bypass anatomy. NPO IV Hydration daily labs Patient needs BP optimization per PMD prior to any invasive testing / surgery. Code(s): K80.50 - CALCULUS OF BILE DUCT W/O CHOLANGITIS OR CHOLECYST W/O OBST
[2019-03-26] MEDS: amLODIPine BESYLATE 5 MG TABLET (FP) PO SCH (14:36)
[2019-03-27] MEDS: ACETAMINOPHEN 325 MG TABLET (FP) PO PRN ×3 (03:03→18:11)
[2019-03-27] MEDS: SODIUM CHLORIDE 0.45% 1,000 ML IV SCH ×2 (04:38→23:17)
[2019-03-27] MEDS: hydrALAZINE HCL 25 MG TABLET (FP) PO SCH ×3 (05:22→21:00)
[2019-03-27] MEDS: amLODIPine BESYLATE 5 MG TABLET (FP) PO SCH (09:12)
--- NOTE | 2019-03-27 11:37 | CON.CARD ---
Consult Consult Specialty:: Cardiology Referred by:: Daya Reason for Consultation:: HTN - History of Present Illness Chief Complaint: RUQ pain History of Present Illness: 53-year-old female with PMhx of gastric bypass sx ( 21 years ago), biliary stone , HTN, HLD, hypothyroidism, Anemia,and Asthma who presents with RUQ pain. + nausea. No fevers. Being work up for gall stones. Noted to have BP 200s when in severe abdominal pain. Had CT head cause developed headaches. Started on htn meds. Feels fine now. No h/o chest pain or sob. No palpitations, pnd, orthopnea, or edema. Reports as part of routine annual exam she had echo and stress test within the year at Dr. Messina's office. - History Source History Provided By: Patient, Medical Record - Past Medical History Cardio/Vascular: Yes: HTN (not on meds for years (resolved after gastric bypass) ) Pulmonary: Yes: Asthma Gastrointestinal: Yes: Other (morbid obesity s/p lap gastric bypass 2001) Hepatobiliary: Yes: Cholelithiasis ...: No Endocrine: Yes: Hypothyroidism (not on meds since 2014), Other (gestational DM only, Obesity) - Past Surgical History Past Surgical History: Yes: Bariatric Surgery (lap gastric bypass 2001), Hernia Repair (ventral with abdominoplasty 2002), Tonsillectomy Additional Surgical History: abdominoplasty and redundant skin excision from upper arms - Alcohol/Substance Use Hx Alcohol Use: No History of Substance Use: reports: None - Smoking History Smoking history: Never smoked Have you smoked in the past 12 months: No - Social History Usual Living Arrangement: With Spouse ADL: Independent History of Recent Travel: No Home Medications - Allergies Allergies/Adverse Reactions: Allergies Allergy/AdvReac Type Severity Reaction Status Date / Time fexofenadine [From Susie] Allergy Verified 03/25/19 17:48 - Home Medications Home Medications: Ambulatory Orders Albuterol Sulfate Inhaler - [Ventolin Hfa Inhaler -] 1 - 2 inh PO Q4H PRN Cholecalciferol (Vitamin D3) [Vitamin D3 -] 1,000 unit PO DAILY 03/25/19 Family Disease History - Family Disease History Family Disease History: Heart Disease: Father (51 year from heart attack ) , Respiratory: Mother ( 59: asthama/ respiratory distress ), Other: Brother (2, 1 from asthma complications, had DM II), Sister (2, 1 from Hodgkin 's Lymphoma in 20's), Son (4 healthy), Daughter (1 healthy) Other Family History: No family history of colorectal cancer or other GI malignancy Vital Signs: Vital Signs Temperature 98.8 F 03/27/19 09:00 Pulse Rate 68 03/27/19 09:00 Respiratory Rate 18 03/27/19 09:00 Blood Pressure 154/96 03/27/19 09:00 O2 Sat by Pulse Oximetry (%) 98 03/27/19 09:00 Constitutional: Yes: Well Nourished, No Distress Neck: Yes: WNL Respiratory: Yes: CTA Bilaterally Gastrointestinal: Yes: Normal Bowel Sounds, Soft Cardiovascular: Yes: Regular Rate and Rhythm JVD: No Carotid Bruit: No PMI: Non-Displaced Heart Sounds: Yes: S1, S2 Murmur: No: Systolic Murmur Edema: No - Other Data Labs, Other Data: CBC, BMP 03/26/19 05:25 03/26/19 05:25 INR, PTT INR 0.97 (0.83-1.09) 03/25/19 20:30 Problem List - Problems (1) HTN (hypertension) Code(s): I10 - ESSENTIAL (PRIMARY) HYPERTENSION Assessment/Plan 53-year-old female with PMhx of gastric bypass sx ( 21 years ago), biliary stone , HTN, HLD, hypothyroidism, Anemia,and Asthma who presents with RUQ pain. + nausea. No fevers. Being work up for gall stones. Noted to have BP 200s when in severe abdominal pain. Had CT head cause developed headaches. Started on htn meds. Feels fine now. No h/o chest pain or sob. No palpitations, pnd, orthopnea, or edema. Reports as part of routine annual exam she had echo and stress test within the year at Dr. Messina's office. 1) HTN -patient is asymptomatic at this time Says bp was usually 140/90 in past but higher here. Likely will need htn med upon DC. Ensure pain is controlled. Agree with amlodipine. Would prefer to increase amlodipine as needed opposed to giving hydralazine as TID will be harder as an outpatient to comply with. Will sign off.
--- NOTE | 2019-03-27 11:40 | PN ---
Progress Note, Physician - Current Medication List Current Medications: Active Medications Acetaminophen (Tylenol -) 650 mg PO Q6H PRN PRN Reason: HEADACHE Last Admin: 03/27/19 03:03 Dose: 650 mg Amlodipine Besylate (Norvasc -) 5 mg PO DAILY [facility] Last Admin: 03/27/19 09:12 Dose: 5 mg Hydralazine HCl (Apresoline -) 25 mg PO TID [facility] Last Admin: 03/27/19 05:22 Dose: 25 mg Sodium Chloride (1/2 Normal Saline) 1,000 mls @ 75 mls/hr IV ASDIR [facility] Last Admin: 03/27/19 04:38 Dose: Not Given Ondansetron HCl (Zofran Injection) 4 mg IM Q6H PRN PRN Reason: NAUSEA AND/OR VOMITING - Objective Vital Signs: Vital Signs Temperature 98.8 F 03/27/19 09:00 Pulse Rate 68 03/27/19 09:00 Respiratory Rate 18 03/27/19 09:00 Blood Pressure 154/96 03/27/19 09:00 O2 Sat by Pulse Oximetry (%) 98 03/27/19 09:00 Cardiovascular: Yes: Regular Rate and Rhythm Respiratory: Yes: Regular, CTA Bilaterally Gastrointestinal: Yes: Normal Bowel Sounds, Soft. No: Tenderness Labs: CBC, BMP 03/26/19 05:25 03/26/19 05:25 INR, PTT INR 0.97 (0.83-1.09) 03/25/19 20:30 Assessment/Plan (1) Cholecystitis with cholelithiasis Assessment/Plan: US ABD:Cholelithiasis/ acute cholecysititis, common duct slight dilation measuring 0.7 cm -Continue with IV fluids - MRCP results pending - Analgesia - Anti emetics - Surgery and GI consults consult Code(s): K80.10 - CALCULUS OF GALLBLADDER W CHRONIC CHOLECYST W/O OBSTRUCTION (2) HTN (hypertension) Assessment/Plan: -Monitor blood pressure closely -continue with hydralazine -Increase amlodipine 10 -Cardio
--- NOTE | 2019-03-27 12:23 | PN.GI ---
GI Progress Note Subjective: Sitting up, No distress No abdominal pain MRCP performed, not read - Objective Vital Signs: Vital Signs Temperature 98.8 F 03/27/19 09:00 Pulse Rate 68 03/27/19 09:00 Respiratory Rate 18 03/27/19 09:00 Blood Pressure 154/96 03/27/19 09:00 O2 Sat by Pulse Oximetry (%) 98 03/27/19 09:00 Constitutional: Calm Eyes: No: Sclera Icterus Cardiovascular: Yes: Regular Rate and Rhythm Respiratory: Yes: CTA Bilaterally Gastrointestinal Inspection: No: Distention ...Auscultate: Yes: Normoactive Bowel Sounds ...Palpate: Yes: Soft. No: Tenderness ...Percussion: No: Tympanitic Edema: No (No LE edema) Neurological: Yes: Alert Labs: CBC, BMP 03/26/19 05:25 03/26/19 05:25 INR, PTT INR 0.97 (0.83-1.09) 03/25/19 20:30 Problem List - Problems (1) Biliary colic Assessment/Plan: Clinically Improved Surgery following Awaiting MRCP result Code(s): K80.50 - CALCULUS OF BILE DUCT W/O CHOLANGITIS OR CHOLECYST W/O OBST
--- NOTE | 2019-03-27 12:28 | PN ---
Progress Note, Physician History of Present Illness: Pt with biliary colic, symptomatic cholelithiasis. MRCP with [facility] [employer] report showing large gallstones, no evidence cholecystitis, no cbd stones, mildly dilated cbd that tapers distally. She is seen and examined in bed. Feels better - no pain now. Passing gas but no BM yet. Still with some headache. Hungry. LFTs still normal, as is wbc. No fevers. BP improving, 140s-150s/80s- 90s. She would like to get it optimized as outpatient, follow low-fat diet, and pursue elective cholecystectomy as outpatient if possible. - Current Medication List Current Medications: Active Medications Acetaminophen (Tylenol -) 650 mg PO Q6H PRN PRN Reason: HEADACHE Last Admin: 03/27/19 03:03 Dose: 650 mg Amlodipine Besylate (Norvasc -) 5 mg PO DAILY [facility] Last Admin: 03/27/19 09:12 Dose: 5 mg Hydralazine HCl (Apresoline -) 25 mg PO TID [facility] Last Admin: 03/27/19 05:22 Dose: 25 mg Sodium Chloride (1/2 Normal Saline) 1,000 mls @ 75 mls/hr IV ASDIR [facility] Last Admin: 03/27/19 04:38 Dose: Not Given Ondansetron HCl (Zofran Injection) 4 mg IM Q6H PRN PRN Reason: NAUSEA AND/OR VOMITING - Objective Vital Signs: Vital Signs Temperature 98.8 F 03/27/19 09:00 Pulse Rate 68 03/27/19 09:00 Respiratory Rate 18 03/27/19 09:00 Blood Pressure 154/96 03/27/19 09:00 O2 Sat by Pulse Oximetry (%) 98 03/27/19 09:00 Vital Signs Period Temp Pulse Resp BP Sys/Barba Pulse Ox Last 24 Hr 97.6 F-98.8 F 59-72 18-20 140-158/68-99 98-99 Constitutional: Yes: No Distress, Calm, Obese Eyes: Yes: Conjunctiva Clear, EOM Intact. No: Sclera Icterus HENT: Yes: Atraumatic, Normocephalic Gastrointestinal: Yes: Normal Bowel Sounds, Soft, Abdomen, Obese, Other (well- healed abdominoplasty scar, periumbilical scar, laparoscopic scars). No: Tenderness, Tenderness, Epigastrium Extremities: No: Cool, Cyanosis Integumentary: No: Jaundice, Rash Neurological: Yes: Alert, Oriented Labs: CBC, BMP 03/26/19 05:25 03/26/19 05:25 CMP Sodium 142 mmol/L (136-145) 03/26/19 05:25 Potassium 4.3 mmol/L (3.5-5.1) 03/26/19 05:25 Chloride 109 mmol/L (98-107) H 03/26/19 05:25 Carbon Dioxide 29 mmol/L (21-32) 03/26/19 05:25 Anion Gap 4 MMOL/L (8-16) L 03/26/19 05:25 BUN 9.3 mg/dL (7-18) 03/26/19 05:25 Creatinine 0.8 mg/dL (0.55-1.3) 03/26/19 05:25 Est GFR (CKD-EPI)AfAm 97.55 03/26/19 05:25 Est GFR (CKD-EPI)NonAf 84.17 03/26/19 05:25 Random Glucose 85 mg/dL (74-106) 03/26/19 05:25 Calcium 8.5 mg/dL (8.5-10.1) 03/26/19 05:25 Total Bilirubin 0.7 mg/dL (0.2-1) 03/26/19 05:25 AST 9 U/L (15-37) L 03/26/19 05:25 ALT 15 U/L (13-61) 03/26/19 05:25 Alkaline Phosphatase 70 U/L (45-117) 03/26/19 05:25 Total Protein 6.2 g/dl (6.4-8.2) L 03/26/19 05:25 Albumin 3.3 g/dl (3.4-5.0) L 03/26/19 05:25 Lipase 83 U/L (73-393) 03/25/19 18:25 - ....Imaging MRI: [facility] and placed in chart), Image Reviewed (images reviewed - moderate to large gallstones, no pericholecystic fluid, no clear cbd stones) Problem List - Problems (1) Calculus of gallbladder without cholecystitis without obstruction Assessment/Plan: admitted to medicine biliary colic with large stones, no cholecystitis MRCP negative pain resolved, no tenderness would use nonnarcotics first line for pain prn GI/DVT prophylaxis will start clears can advance in am to low-fat diet if tolerates clear liquids through dinner ( would skip fulls) would avoid soda/carbonated drinks and maintain low-fat diet at home BP/medical optimization prior to outpatient cholecystectomy cardiology consult noted Code(s): K80.20 - CALCULUS OF GALLBLADDER W/O CHOLECYSTITIS W/O OBSTRUCTION (2) RUQ pain Assessment/Plan: resolved Code(s): R10.11 - RIGHT UPPER QUADRANT PAIN (3) HTN (hypertension) Assessment/Plan: significantly elevated BP on admission, improved with meds not on meds for a number of years per patient will need to be controlled before any surgical procedure cardio input noted - plan for amlodipine to adjust dose as needed defer to primary team Code(s): I10 - ESSENTIAL (PRIMARY) HYPERTENSION Qualifiers: Hypertension type: essential hypertension Qualified Code(s): I10 - Essential (primary) hypertension (4) Obesity due to excess calories Assessment/Plan: lap gastric bypass with almost 150lb weight loss Code(s): E66.09 - OTHER OBESITY DUE TO EXCESS CALORIES Qualifiers: Obesity classification: adult class 2 (BMI 35 - 39.9) Serious obesity comorbidity presence: without serious comorbidity Body mass index: BMI 38.0- 38.9 Qualified Code(s): E66.09 - Other obesity due to excess calories; Z68.38 - Body mass index (BMI) 38.0-38.9, adult (5) Status post gastric bypass for obesity Assessment/Plan: about 30 pounds back up from low of 220s Code(s): Z98.84 - BARIATRIC SURGERY STATUS
[2019-03-27] MEDS ORDERED: amLODIPine BESYLATE 5 MG TABLET (FP) PO ONE (16:01)
--- NOTE | 2019-03-28 00:32 | EKG ---
Test Reason : Blood Pressure : / mmHG Vent. Rate : 072 BPM Atrial Rate : 072 BPM P-R Int : 190 ms QRS Dur : 088 ms QT Int : 428 ms P-R-T Axes : 051 -28 012 degrees QTc Int : 468 ms NORMAL SINUS RHYTHM POOR R WAVE PROGRESSION ABNORMAL ECG NO PREVIOUS ECGS AVAILABLE Confirmed by MD Jaquan, Atif ([id number]) on 03/28/2019 12:31:42 AM Referred By: Confirmed By:Atif Partida MD
[2019-03-28] MEDS: ACETAMINOPHEN 325 MG TABLET (FP) PO PRN (03:21)
[2019-03-28] MEDS: SODIUM CHLORIDE 0.45% 1,000 ML IV SCH (05:09)
[2019-03-28] MEDS: hydrALAZINE HCL 25 MG TABLET (FP) PO SCH (05:43)
[2019-03-28] MEDS: amLODIPine BESYLATE 10 MG TABLET (FP) PO SCH (11:41)
--- NOTE | 2019-03-28 12:12 | PN ---
Progress Note, Physician Chief Complaint: Calculus of Gallbladder RUQ pain HTN History of Present Illness: Previous notes and events reviewed awake and alert NAD no further complaints of RUQ pain continue to have headaches--relieved with tylenol - Current Medication List Current Medications: Active Medications Acetaminophen (Tylenol -) 650 mg PO Q6H PRN PRN Reason: HEADACHE Last Admin: 03/28/19 03:21 Dose: 650 mg Amlodipine Besylate (Norvasc -) 10 mg PO DAILY [facility] Last Admin: 03/28/19 11:41 Dose: 10 mg Hydralazine HCl (Apresoline -) 25 mg PO TID [facility] Last Admin: 03/28/19 05:43 Dose: 25 mg Sodium Chloride (1/2 Normal Saline) 1,000 mls @ 75 mls/hr IV ASDIR [facility] Last Admin: 03/28/19 05:09 Dose: Not Given Ondansetron HCl (Zofran Injection) 4 mg IM Q6H PRN PRN Reason: NAUSEA AND/OR VOMITING - Objective Vital Signs: Vital Signs Temperature 98 F 03/28/19 10:00 Pulse Rate 67 03/28/19 10:00 Respiratory Rate 18 03/28/19 10:00 Blood Pressure 151/93 03/28/19 10:00 O2 Sat by Pulse Oximetry (%) 98 03/28/19 09:00 Constitutional: Yes: No Distress, Calm Eyes: Yes: Conjunctiva Clear HENT: Yes: Atraumatic Cardiovascular: Yes: Regular Rate and Rhythm Respiratory: Yes: Regular, CTA Bilaterally Gastrointestinal: Yes: Normal Bowel Sounds, Soft Musculoskeletal: Yes: WNL Extremities: Yes: WNL Edema: No Neurological: Yes: Alert, Oriented Psychiatric: Yes: Alert, Oriented Labs: CBC, BMP 03/26/19 05:25 03/26/19 05:25 INR, PTT INR 0.97 (0.83-1.09) 03/25/19 20:30 Problem List - Problems (1) Abdominal pain Assessment/Plan: -GI on board -MRCP done shows hydropic gallbladder containing 2 large gallstones with questionable trace pericholecystic fluid but no gallbladder wall thickening, no choledocolothiaisis, dilation of CBD 10mm with distal tapering 2mm with no evidence of choledocolithiasis or obstructing mass -IV hydration -tolerating clear liquid diet -pain control Code(s): R10.9 - UNSPECIFIED ABDOMINAL PAIN Qualifiers: Abdominal location: unspecified location Qualified Code(s): R10.9 - Unspecified abdominal pain (2) Calculus of gallbladder without cholecystitis without obstruction Assessment/Plan: -GI on board -MRCP done shows hydropic gallbladder containing 2 large gallstones with questionable trace pericholecystic fluid but no gallbladder wall thickening, no choledocolothiaisis, dilation of CBD 10mm with distal tapering 2mm with no evidence of choledocolithiasis or obstructing mass -IV hydration -tolerating clear liquid diet -pain control -surgery on board Code(s): K80.20 - CALCULUS OF GALLBLADDER W/O CHOLECYSTITIS W/O OBSTRUCTION (3) HTN (hypertension) Assessment/Plan: -Cardiology on board and recommendation appreciated -amlodipine -hydralazine discontinued Code(s): I10 - ESSENTIAL (PRIMARY) HYPERTENSION Qualifiers: Hypertension type: essential hypertension Qualified Code(s): I10 - Essential (primary) hypertension (4) RUQ pain Assessment/Plan: -GI on board -MRCP done shows hydropic gallbladder containing 2 large gallstones with questionable trace pericholecystic fluid but no gallbladder wall thickening, no choledocolothiaisis, dilation of CBD 10mm with distal tapering 2mm with no evidence of choledocolithiasis or obstructing mass -IV hydration -tolerating clear liquid diet -pain control Code(s): R10.11 - RIGHT UPPER QUADRANT PAIN Assessment/Plan dvt ppx see problem list
--- NOTE | 2019-03-28 13:15 | PN ---
Progress Note (short form) - Note Progress Note: Patient seen and examined Labs reviewed Abdominal pain free now >24h Tolerating clears Vital Signs Temp 98 F 03/28/19 10:00 Pulse 67 03/28/19 10:00 Resp 18 03/28/19 10:00 BP 151/93 03/28/19 10:00 Pulse Ox 98 03/28/19 09:00 NAD Anicteric Soft NT ND labs reviewed MRCP with stones in gallbladder neck, no definite choledocholithiasis, CBD dilated to 10mm proximally then tapers, possible choledochal cyst type 1 Impression: likely biliary colic. Would advance diet Cholecystectomy per surgery; suggest IOC at time of surgery
[2019-03-29 08:40] LABS: HEMATOCRIT 39.3 % (32.4-45.2); HEMOGLOBIN 12.7 GM/dL (10.7-15.3); MCH 24.8 pg (25.7-33.7); MCHC 32.2 g/dl (32.0-36.0); MEAN CELL VOLUME 76.8 fl (80-96); MEAN PLT VOLUME 7.6 fl (7.5-11.1); PLATELET COUNT 263 K/MM3 (134-434); RBC 5.11 M/mm3 (3.60-5.2); RDW 15.8 % (11.6-15.6)
--- NOTE | 2019-03-29 08:54 | DS ---
Physical Examination Vital Signs: Vital Signs Temperature 97.7 F 03/29/19 06:09 Pulse Rate 70 03/29/19 06:09 Respiratory Rate 20 03/29/19 06:09 Blood Pressure 131/90 03/29/19 06:09 O2 Sat by Pulse Oximetry (%) 100 03/28/19 21:00 Constitutional: Yes: No Distress Eyes: Yes: WNL HENT: Yes: WNL Neck: Yes: WNL Cardiovascular: Yes: WNL Respiratory: Yes: WNL Gastrointestinal: Yes: WNL Renal/: Yes: WNL Musculoskeletal: Yes: WNL Edema: No Peripheral Pulses WNL: Yes Discharge Summary Reason For Visit: CHOLECYSTITIS/ABDOMINAL PAIN Current Active Problems Abdominal pain (Acute) Calculus of gallbladder without cholecystitis without obstruction (Acute) Cholecystitis with cholelithiasis (Acute) HTN (hypertension) (Acute) Obesity due to excess calories (Acute) RUQ pain (Acute) Status post gastric bypass for obesity (Acute) Procedures: Principal: ct scan Hospital Course: ADMITTED CHOLITHIASIS AND ABD PAIN, TREATED IV FLUIDS, ANTIEMETICS, RESOLVED AND TOLERATING MEALS Condition: Good - Instructions Diet, Activity, Other Instructions: SEE YOUR DOCTOR IN 1 WEEK Disposition: HOME - Home Medications Comprehensive Discharge Medication List: Ambulatory Orders Albuterol Sulfate Inhaler - [Ventolin Hfa Inhaler -] 1 - 2 inh PO Q4H PRN Cholecalciferol (Vitamin D3) [Vitamin D3 -] 1,000 unit PO DAILY 03/25/19
[2019-03-29 09:11] LABS: ALBUMIN 3.7 g/dl (3.4-5.0); BILIRUBIN,TOTAL 0.4 mg/dL (0.2-1); BLOOD UREA NITROGEN 8.4 mg/dL (7-18); CALCIUM 9.1 mg/dL (8.5-10.1); CREATININE 0.8 mg/dL (0.55-1.3); TOT PROT 7.1 g/dl (6.4-8.2)
[2019-03-29] MEDS: amLODIPine BESYLATE 10 MG TABLET (FP) PO SCH (09:27)
[2019-03-29 09:47] VITALS: BP 132/76; PULSE 77; TEMP 98.5
== END 2019-03-29 10:23 | disposition home or self-care (01) | DRG 446 ==
LOC: JER 17:14 → JERBED 21:15 → J7W 03-26 01:14
PROVIDERS: ADMIT Family Medicine; ATTEND Family Medicine
DX: K80.20 Calculus of gallbladder without cholecystitis without obstruction (principal); K80.50 Calculus of bile duct without cholangitis or cholecystitis without obstruction; I10 Essential (primary) hypertension; E78.5 Hyperlipidemia, unspecified; Z98.84 Bariatric surgery status; E03.9 Hypothyroidism, unspecified; D64.9 Anemia, unspecified; J45.909 Unspecified asthma, uncomplicated; R10.11 Right upper quadrant pain; R11.0 Nausea; R63.5 Abnormal weight gain; E66.8 Other obesity; Z68.38 Body mass index [BMI] 38.0-38.9, adult
CPT/HCPCS: 36415; 70450-TC; 74181-TC; 76705-TC; 80053; 81003; 83690; 85025; 85027; 85610; 85730; 93005; 93010; 99284-25; J7030